=== PATIENT | male | born 1990 | race Caucasian/White ===

== ENCOUNTER 2018-11-11 17:09 | Emergency (ER) | payer OTHER ==
[~2018-11-11] VITALS: Ht 180.3 cm; Wt 71.7 kg
[2018-11-11 17:11] VITALS: BP 117/76
[2018-11-11] MEDS ORDERED: PENICILLIN V P500 MG PO (17:51)
[2018-11-11] MEDS ORDERED: ULTRAM 50MG TAB50 MG PO (17:51)
[2018-11-11] MEDS ORDERED: MOBIC15 MG PO (17:51)
== END 2018-11-11 17:50 | disposition home or self-care (01) ==
LOC: ER 17:09
DX: K02.9 Dental caries, unspecified (principal); F17.210 Nicotine dependence, cigarettes, uncomplicated